=== PATIENT | female | born 1965 | race Caucasian/White ===

== ENCOUNTER → 2018-07-30 | Day surgery (SDC) | payer OTHER ==
[~2018-07-30] MED LIST: ANASTROZOLE1 MG PO; METROPOLOL PO; TOPROL XL50 M1 PO; [UNRECOGNIZED DRUG - OTHER] PO
== END | disposition home or self-care (01) ==
LOC: CIR.AMB 05:37
PROVIDERS: Plastic Surgery
PROC: 0HBV0ZZ Excision of Bilateral Breast, Open Approach (ICD-10-PCS; principal; 2018-07-30 07:00)
DX: N65.1 Disproportion of reconstructed breast (principal)

== ENCOUNTER 2018-07-31 14:58 | Inpatient (IN) | payer OTHER ==
[~2018-07-31] VITALS: Ht 175.3 cm; Wt 90.7 kg
--- NOTE | 2018-07-31 15:08 | NUR ---
SE RECIBE PACIENTE ALERTA Y ORIENTADA X3 CON SANGRADO ACTIVO EN S[place] ASIF [place] DE UN OPERACION CHASTITY POR DR. GONZALEZ. PACIENTE VERBALIZA SENTIRSE MAREADA Y SE LE UBICA EN ABBEY.
== END 2018-08-01 15:23 | disposition home or self-care (01) | DRG 909 ==
LOC: ER 14:58 → SEC-K 15:37 → SURG 19:54
PROVIDERS: ADMIT Plastic Surgery
PROC: 0H9U0ZZ Drainage of Left Breast, Open Approach (ICD-10-PCS; principal; 2018-07-31 16:00)
DX: L76.32 Postprocedural hematoma of skin and subcutaneous tissue following other procedure (principal); I10 Essential (primary) hypertension; Z85.3 Personal history of malignant neoplasm of breast

== ENCOUNTER 2022-07-07 10:58 | Outpatient (CLI) | payer OTHER | END 2022-07-07 11:01 | disposition home or self-care (01) | LOC: SONOGRAMA 10:58 | PROVIDERS: ATTEND Pathology Anatomic Pathology & Clinical Pathology | DX: D34 Benign neoplasm of thyroid gland (principal); E04.9 Nontoxic goiter, unspecified; E04.2 Nontoxic multinodular goiter ==